=== PATIENT | male | born 1975 | race Caucasian/White ===

== ENCOUNTER 2022-12-13 23:18 | Emergency (ER) | payer OTHER, SELFPAY ==
--- NOTE | ~2022-12-13 | XR_ITS ---
EXAMINATION: XR chest 2V DATE: 12/13/2022 23:47 INDICATION: Shortness of breath. TECHNIQUE: Frontal and lateral views of the chest were obtained. COMPARISON: Chest CT 12/14/2022 FINDINGS: The chest demonstrates clear lungs without pneumonia, pleural effusion, or pneumothorax. Th e heart size is normal. IMPRESSION: 1. No acute cardiopulmonary disease. Reviewed, dictated and finalized at location A.
--- NOTE | ~2022-12-13 | CT_ITS ---
EXAMINATION: CTA chest PE protocol DATE: 12/14/2022 04:21 INDICATION: Shortness of breath. Cough. Fever. TECHNIQUE: Computed tomography angiography (CTA) of the chest was performed with 100 mL Omnipaque-350 intravenous contrast timed to evaluate the pulmonary arteries. Coronal maximum intensity projection 3D-reconstructions were created by the technologist. Automated exposure control and iterative reconst ruction technique were employed. The dose-length product was 778.50 mGy-cm. COMPARISON: None. FINDINGS: The lungs demonstrate mild atelectasis. There are centrilobular nodules and [place] in right upper lobe and right lower lobe, consistent with pneumonia. No pleural effusion. The heart size is normal. No pericardial effusion. There is no pulmonary embolus. There is mild thoracic spondylosis. There is mild chronic anterior wedging of T12 vertebral body. IMPRESSION: 1. No pulmonary embolus. Sensitivity is mildly decreased by motion artifact. 2. Pneumonia involving right upper lobe and right lower lobe. Reviewed, dictated and finalized at location A.
[2022-12-13 23:26] VITALS: PULSE 97; RESP 20; TEMP 36.9; O2SAT 94
[2022-12-14] VITALS (16 sets, daily range): BP systolic 131; BP diastolic 76; PULSE 64–92; RESP 11–22; O2SAT 91–95
--- NOTE | 2022-12-14 00:44 | ECG_ITS ---
Measurements Intervals [place] Rate: 70 P: 52 MO: 167 QRS: -1 QRSD: 110 T: 28 QT: 391 QTc: 422 Interpretive Statements SINUS RHYTHM NORMAL ECG NO PREVIOUS ECG AVAILABLE FOR COMPARISON Electronically Signed On 12-14-2022 8:01:09 CDT by Elliot Qureshi D.O.
--- NOTE | 2022-12-14 00:57 | ED.SOB ---
HPI - SOB/Dyspnea General Chief Complaint: Shortness of Breath/Dyspnea <JOSE RAMON Arteaga Last Filed: 12/14/22 04:40> Stated Complaint: fever, sob, cough for 4 days <JOSE RAMON Arteaga Last Filed: 12/14/22 04:40> Time Seen by Provider: 12/14/22 00:22 <JOSE RAMON Arteaga Last Filed: 12/14/22 04:40> History of Present Illness HPI Narrative: 47-year-old male here for evaluation of sinus congestion, cough, low-grade fevers at home x3 days. States that he has had sinus drainage for the past 2 weeks and he has a history of recurrent sinus infections. Having lots of facial pressure and feels similar to previous infections. Patient states that he has been attempting OTC meds without relief. Took a COVID test at home that was negative. Started to feel SOB today with productive cough. Home pulse ox 89/90, here 92/93. No chest pain, abdominal pain, vomiting. <JOSE RAMON Arteaga Last Filed: 12/14/22 04:40> Related Data Allergies/Adverse Reactions: Allergies Allergy/AdvReac Type Severity Reaction Status Date / Time codeine AdvReac Hyperactive Verified 12/14/22 00:26 <JOSE RAMON Arteaga Last Filed: 12/14/22 04:40> Review of Systems Review of Systems: Gen: Denies fevers or chills Eyes: Denies eye pain or visual change ENT: Reports congestion Respiratory: Denies shortness of breath or cough CV: Denies chest pain or palpitations GI: Denies abdominal pain nausea, emesis or diarrhea : denies burning, urgency, frequency or hematuria Musculoskeletal: Denies back pain or muscle pain Neuro: Denies numbness, tingling, weakness or focal weakness Skin: Denies rash Except as documented, all other systems reviewed and negative <JOSE RAMON Arteaga Last Filed: 12/14/22 04:40> Course [facility]OOK CANDY/PA Physician Supervision For this patient encounter, I reviewed the COOK CANDY or PA documentation, treatment plan, and I was responsible for the medical decision making; and I had [id number] time with this patient. Patient was updated and results of the imaging. All question concerns were addressed. <Andriy Hendrix MD - Last Filed: 12/14/22 06:33> Vital Signs Vital signs: Vital Signs Temperature 98.4 F 12/13/22 23:26 Pulse Rate 97 12/13/22 23:26 Respiratory Rate 20 12/13/22 23:26 Pulse Oximetry 94 12/13/22 23:26 Oxygen Delivery Room Air 12/13/22 23:26 Temperature 98.4 F 12/13/22 23:26 Pulse Rate 80 12/14/22 05:05 Respiratory Rate 19 12/14/22 05:05 Blood Pressure 131/76 12/14/22 05:05 Pulse Oximetry 95 12/14/22 05:05 Oxygen Delivery Room Air 12/14/22 02:08 <Sveta Bonner PA-C - Last Filed: 12/14/22 04:40> Vital Signs Temperature 98.4 F 12/13/22 23:26 Pulse Rate 97 12/13/22 23:26 Respiratory Rate 20 12/13/22 23:26 Pulse Oximetry 94 12/13/22 23:26 Oxygen Delivery Room Air 12/13/22 23:26 Temperature 98.4 F 12/13/22 23:26 Pulse Rate 80 12/14/22 05:05 Respiratory Rate 19 12/14/22 05:05 Blood Pressure 131/76 12/14/22 05:05 Pulse Oximetry 95 12/14/22 05:05 Oxygen Delivery Room Air 12/14/22 02:08 <Andriy Hendrix MD - Last Filed: 12/14/22 06:33> MDM - SOB/Dyspnea MDM Narrative Medical decision making narrative: 47 year old male here due to URI sx x 2 weeks, SOB and cough x 3 days. Non-toxic in appearance, sinus tenderness on exam, no leg swelling. Patient did desaturate to 88 on RA, ?WILL but patient did have several episodes of hypoxia while aware. Basic labs unremarkable. X-ray clear by preliminary read. Viral swabs negative. Will obtain CT lungs to r/o PE. Signed out pending CT scan; likely d/c home with treatment for bacterial sinusitis. <Sveta Bonner PA-C - Last Filed: 12/14/22 04:40> Differential Diagnosis Differential diagnosis: Likely acute exacerbation of chronic obstructive airways disease, community acquired pneumoni
[2022-12-14 01:19] LABS: Influenza A QL RT-PCR Negative (Negative); Influenza B QL RT-PCR Negative (Negative); RSV RNA, RT-PCR Negative (Negative); SARS-CoV-2 RNA PCR Negative (Negative)
[2022-12-14 02:20] LABS: Basophils Percent Auto 0.5 % (0.2-1.2); Eosinophils Percent Auto 0.7 % (0-4.4); Hematocrit 38.6 % (42.0-52.0); Hemoglobin 13.3 g/dL (14.0-18.0); Immature Granulocyte Absolute 0.01 K/mm3 (0.00-0.031); Immature Granulocyte Percent A 0.2 % (0-0.5); Lymphocytes Percent Auto 13.9 % (18.3-44.2); Mean Corpuscular HGB Conc 34.5 g/dl (32-36); Mean Corpuscular Hemoglobin 31.3 pg (26-34); Mean Corpuscular Volume 90.8 fl (80-100); Mean Platelet Volume 10.1 fl (7.4-10.4); Monocytes Absolute Auto 0.4 K/mm3 (0.1-0.6); Monocytes Percent Auto 9.5 % (2.6-8.5); Neutrophils Absolute Auto 3.3 K/mm3 (1.3-6.7); Neutrophils Percent Auto 75.2 % (45.5-73.1); Platelet Count Result 202 k/mm3 (150-375); Red Blood Count 4.25 M/mm3 (4.6-6.20); Red Cell Distribution Width 12.8 % (11.5-14.5); White Blood Count 4.3 K/mm3 (4.5-10.0)
[2022-12-14 02:30] LABS: Anion Gap 6 mmol/L (8-16); Blood Urea Nitrogen 15 mg/dL (9-20); Calcium 8.3 mg/dL (8.4-10.2); Carbon Dioxide 28 mmol/L (22-30); Chloride 103 mmol/L (98-107); Estimated CRCL calculation 77 ml/min; Estimated Glomerular Filt Rate 59; Glucose 116 mg/dL (65-110); Potassium 3.7 mmol/L (3.4-5.0); Sodium 137 mmol/L (137-145)
[2022-12-14] MEDS: ONDANSETRON HCL ODT 4 MG TABLET PO (03:02)
[2022-12-14] MEDS: IPRATROPIUM BR 0.02% INH SOLN 0.5 MG/2.5 ML VIAL INHALATION (03:33)
[2022-12-14] MEDS: LEVALBUTEROL NEB 1.25 MG/3 ML INHALATION (03:34)
[2022-12-14 03:43] LABS: Strep Group A RT-PCR NOT DETECTED (Negative)
[2022-12-14 04:17] LABS: Prothrombin Time 13.8 Seconds (11.1-14.7)
[2022-12-14 04:18] LABS: Partial Thromboplastin Time 46.6 SECONDS (22.3-36.8)
== END 2022-12-14 05:05 | disposition home or self-care (01) ==
PROVIDERS: Emergency Medicine; Emergency Provider Physician Assistant; PCP Internal Medicine
DX: J32.9 Chronic sinusitis, unspecified (principal); B96.89 Other specified bacterial agents as the cause of diseases classified elsewhere; J18.9 Pneumonia, unspecified organism; Z20.822 Contact with and (suspected) exposure to COVID-19
CPT/HCPCS: 36415; 71046; 71275; 80048; 85025; 85610; 85730; 87637; 87651; 93005; 94640; 99284; A9270; Q9967